=== PATIENT | female | born 1970 | race Caucasian/White ===

== ENCOUNTER 2024-05-10 13:36 | Emergency (ER) | payer OTHER ==
[~2024-05-10] VITALS: Ht 162.6 cm; Wt 75.5 kg
[2024-05-10] MEDS ORDERED: MORPHINE SULFATE 4 MG/ML VIAL IV ONE (14:00)
[2024-05-10 14:04] LABS: MCV 82.3 fl (81-99)
[2024-05-10 14:06] LABS: BASOPHILS 0.9 % (0-2); EOSINOPHILS 1.1 % (0-6); HEMATOCRIT 39.3 % (35.0-50.0); HEMOGLOBIN 12.9 g/dL (12.0-18.0); LYMPHOCYTES 28.5 % (24-44); MCHC 32.8 g/dl (30-36); MONOCYTES 5.7 % (0-12); NEUTROPHILS 63.8 % (39-80); PLATELET COUNT 256 K/uL (140-440); RBC 4.78 M/ul (4.3-5.7); RDW 13.5 (10.5-15.0)
[2024-05-10 14:11] LABS: ALBUMIN 3.5 g/dL (3.4-5.0); ALBUMIN/GLOBULIN RATIO 0.97 (1.1-2.4); ALCOHOL, MEDICAL <3 ng/dL (<3); ALKALINE PHOSPHATASE 96 U/L (46-116); ALT (SGPT) 43 U/L (14-59); ANION GAP 13.9 (7-21); AST (SGOT) 46 U/L (15-37); BILIRUBIN, TOTAL 0.7 ng/dL (0.2-1.0); BUN/CREATININE RATIO 19.04 (6.0-28.6); CALCIUM 8.9 mg/dL (8.5-10.1); CARBON DIOXIDE 27 mmol/L (21-32); CHLORIDE 100 mmol/L (98-107); CREATININE, SERUM 0.84 mg/dL (0.55-1.02); GLOMERULAR FILTRATION RATE,EST 83 mL/min (>60); POTASSIUM 3.9 mmol/L (3.5-5.1); PROTEIN, TOTAL 7.1 g/dL (6.4-8.2); UREA NITROGEN 16 mg/dL (7-18)
[2024-05-10] MEDS ORDERED: HYDROmorphone HCL 1 MG/ML SYR IV ONE (15:00)
[2024-05-10] MEDS ORDERED: KETOROLAC TROMETHAMINE 30 MG/ML VIAL IV ONE (15:00)
[2024-05-10] MEDS ORDERED: SODIUM CHLORIDE 0.9% 1,000 ML IV PRN (15:00)
[2024-05-10] MEDS ORDERED: HYDROCODON-ACE1 EA10 PO (15:45)
[2024-05-10 16:11] VITALS: BP 112/54
== END 2024-05-10 16:38 | disposition home or self-care (01) ==
LOC: ED 13:36
PROVIDERS: Emergency Medicine
DX: S16.1XXA Strain of muscle, fascia and tendon at neck level, initial encounter (principal); S46.912A Strain of unspecified muscle, fascia and tendon at shoulder and upper arm level, left arm, initial encounter; S39.012A Strain of muscle, fascia and tendon of lower back, initial encounter; S50.312A Abrasion of left elbow, initial encounter; V23.59XA Other motorcycle passenger injured in collision with car, pick-up truck or van in traffic accident, initial encounter; Z88.8 Allergy status to other drugs, medicaments and biological substances; Z91.013 Allergy to seafood
CPT/HCPCS: 36415; 70450; 71045; 72040; 72100; 72170; 73030; 73080; 80053; 80307; 81001; 83690; 85025; G0480; J1170; J1885; J2270; J7030